=== PATIENT | male | born 1970 | race African-American/Black ===

== ENCOUNTER 2018-12-20 11:26 | Emergency (ER) | payer OTHER ==
[~2018-12-20] VITALS: Wt 95.0 kg
[2018-12-20] MEDS ORDERED: ASPIRIN 81 MG TAB PO STA (12:32)
[2018-12-20] MEDS ORDERED: NITROGLYCERIN 2% 1 GM OINT PKT TD STA (12:32)
[2018-12-20 12:44] VITALS: BP 156/113; PULSE 74; RESP 18
--- NOTE | 2018-12-20 12:57 | ERD ---
ER Documentation Chief Complaint Chief Complaint R SIDED CHEST PAIN X 5 DAYS "PRESSURE" ; HX CHOLESTEROL HPI Patient is a 48-year-old male with prediabetes and high cholesterol presents wit h chest pain. He said that he has had a chest pressure for the past 5 days which is constant in the midsternal area. He has had no treatment as of yet. He saw his doctor today who sent him to the emergency department for further evaluation. He says that he goes to a local clinic for his care. ROS All systems reviewed and are negative except as per history of present illness. Allergies Allergies: Coded Allergies: No Known Allergy (Unverified , 12/20/18) PMhx/Soc Medical and Surgical Hx: pt denies Surgical Hx Hx Cardiac Disorders: Yes (cholesterol) Hx Alcohol Use: No Hx Substance Use: No Hx Tobacco Use: No Smoking Status: Never smoker FmHx Family History: No coronary disease Physical Exam Vitals Vital Signs Date Temp Pulse Resp B/P (MAP) Pulse Ox O2 O2 Flow FiO2 Time Delivery Rate 12/20/18 74 18 156/113 100 Room Air 12:44 (127) 12/20/18 97.9 68 19 162/100 100 12:13 (120) Physical Exam Const: No acute distress Head: Atraumatic Eyes: Normal Conjunctiva ENT: Normal External Ears, Nose and Mouth. Neck: Full range of motion. No meningismus. Resp: Clear to auscultation bilaterally Cardio: Regular rate and rhythm, no murmurs Abd: Soft, non tender, non distended. Normal bowel sounds Skin: No petechiae or rashes Back: No midline or flank tenderness Ext: No cyanosis, or edema Neur: Awake and alert Psych: Normal Mood and Affect Results 24 hrs Current Medications Medications Dose Sig/Kole Start Time Status Last (Trade) Ordered Route PRN Stop Time Admin Dose Reason Admin Aspirin 162 mg ONCE STAT 12/20/18 DC (Aspirin) PO 12:32 12/20/18 12:33 1 inch ONCE STAT 12/20/18 DC Nitroglycerin TD 12:32 12/20/18 12:33 (Nitroglyceri n 2% Oint) 1 tab Q5M UP TO 3 12/20/18 Nitroglycerin DOSES PRN 13:00 SL .CHEST (Nitroglyceri PAIN n (Sl Tab) 0.4 Mg) Procedures/MDM EKG read by me: Rate/Rhythm: Regular rate and rhythm at a rate of 70 Intervals: Normal Impression: No evidence of ischemia or arrhythmia Patient is a 48-year-old male with prediabetes and high cholesterol presents with chest pain. I am concerned for acute coronary syndrome given his description and symptoms. I wanted to do a full workup for acute coronary syndrome and admitted to the hospital. However he says that he has to drive his family home and cannot stay. I told him that I would not recommend this and that he would have to sign out AGAINST MEDICAL ADVICE. He understands the risks of leaving including heart attack or . The patient will need to return once he is done for further workup and admission. He is refusing further testing at this time until he is able to drop off his family. Departure Diagnosis: Primary Impression: Chest pain Chest pain type: unspecified Qualified Codes: R07.9 - Chest pain, unspecified Condition: Fair Patient Instructions: Chest Pain, Uncertain Cause Referrals: Your doctor Additional Instructions: Call your primary care doctor TOMORROW for an appointment during the next 1-2 days.See the doctor sooner or return here if your condition worsens before your appointment time. ROBERTO BECK MD Dec 20, 2018 12:57
[2018-12-20] MEDS ORDERED: NITROGLYCERIN (SL) 0.4 MG TAB SL PRN (13:00)
== END 2018-12-20 13:04 | disposition left against medical advice (07) ==
LOC: E/R 11:26
DX: R07.9 Chest pain, unspecified (principal)
CPT/HCPCS: 93005; Z7502; Z7610

== ENCOUNTER 2018-12-26 03:09 | Emergency (ER) | payer OTHER ==
[~2018-12-26] VITALS: Ht 177.8 cm; Wt 92.8 kg
[2018-12-26 03:18] VITALS: Ht 177.8 cm; Wt 92.8 kg
[2018-12-26] MEDS ORDERED: ASPIRIN 81 MG TAB PO STA (05:00)
[2018-12-26] MEDS ORDERED: KETOROLAC 15 MG INJ IV STA (06:19)
[2018-12-26] MEDS ORDERED: SOD CHLORIDE 0.9% 1,000 ML IV STA (06:19)
--- NOTE | 2018-12-26 07:55 | ERD ---
ER Documentation Chief Complaint Chief Complaint PT reports CP x 2 weeks HPI This is a very pleasant 48-year-old gentleman who presents to the emergency with 2 weeks of chest pain he describes it is right-sided, occasionally tight and worse with rotational movement. He states it is worse during the day and improve when relaxing and laying down and sleeping at night. He denies exertional symptoms. He does report recent flight to [place] given recent passing of his mother. He states symptoms have started since then. He does describe a mild pleuritic component but no calf swelling or leg swelling or prior history of DVT. He denies any hemoptysis. No fevers or chills. ROS All systems reviewed and are negative except as per history of present illness. Medications Home Meds Active Scripts Lorazepam* (Lorazepam*) 1 Mg Tablet, 1 MG PO Q8H PRN for ANXIETY, #8 TAB Prov:YENNY POWELL MD 12/26/18 Ibuprofen* (Motrin*) 800 Mg Tab, 800 MG PO Q6H PRN for PAIN AND OR ELEVATED TEMP, #30 TAB Prov:YENNY POWELL MD 12/26/18 Allergies Allergies: Coded Allergies: No Known Allergy (Unverified , 12/20/18) PMhx/Soc Medical and Surgical Hx: pt denies Medical Hx, pt denies Surgical Hx History of Surgery: No Anesthesia Reaction: No Hx Neurological Disorder: No Hx Respiratory Disorders: No Hx Cardiac Disorders: No Hx Psychiatric Problems: No Hx Miscellaneous Medical Probl: No Hx Alcohol Use: No Hx Substance Use: No Hx Tobacco Use: No Smoking Status: Never smoker FmHx Family History: No diabetes, No coronary disease Physical Exam Vitals Vital Signs Date Temp Pulse Resp B/P (MAP) Pulse Ox O2 O2 Flow FiO2 Time Delivery Rate 12/26/18 71 19 155/97 98 Room Air 05:00 (116) 12/26/18 98.6 80 16 170/97 100 03:18 (121) Physical Exam General: Well developed, well nourished, no acute distress Head: Normocephalic, atraumatic. Eyes: Pupils equally reactive, EOM intact ENT: Moist mucous membranes Neck: Supple, no lymphadenopathy Respiratory: Lungs clear bilaterally, no distress, reproducible right-sided anterior chest wall tenderness Cardiovascular: RRR, no murmurs, rubs, or gallops Abdominal: Soft, non-tender, non-distended, no peritoneal signs : Deferred MSK: No edema, no unilateral swelling, 5/5 strength Neurologic: Alert and oriented, moving all extremities, normal speech, no focal weakness, no cerebellar signs Skin: No rash Psych: Normal mood Result Diagram: 12/26/18 0501 12/26/18 0501 Results 24 hrs Laboratory Tests Test 12/26/18 05:01 12/26/18 08:07 White Blood Count 5.4 10^3/ul Red Blood Count 4.79 10^6/ul Hemoglobin 14.5 g/dl Hematocrit 43.2 % Mean Corpuscular Volume 90.2 fl Mean Corpuscular Hemoglobin 30.3 pg Mean Corpuscular Hemoglobin Concent 33.6 g/dl Red Cell Distribution Width 13.0 % Platelet Count 240 10^3/UL Mean Platelet Volume 10.0 fl Immature Granulocytes % 0.600 % Neutrophils % 53.6 % Lymphocytes % 37.6 % Monocytes % 6.7 % Eosinophils % 1.1 % Basophils % 0.4 % Nucleated Red Blood Cells % 0.0 /100WBC Immature Granulocytes # 0.030 10^3/ul Neutrophils # 2.9 10^3/ul Lymphocytes # 2.0 10^3/ul Monocytes # 0.4 10^3/ul Eosinophils # 0.1 10^3/ul Basophils # 0.0 10^3/ul Nucleated Red Blood Cells # 0.0 10^3/ul Prothrombin Time 12.0 Sec Prothrombin Time Ratio 0.9 INR International Normalized Ratio 0.88 Activated Partial Thromboplast Time 28.3 Sec D-Dimer 306.73 ng/ml D-Dimer Comment Sodium Level 141 mmol/L Potassium Level 5.1 mmol/L Chloride Level 104 mmol/L Carbon Dioxide Level 27 mmol/L Anion Gap 10 Blood Urea Nitrogen 9 mg/dl Creatinine 0.79 mg/dl Est Glomerular Filtrat Rate mL/min > 60 mL/min Glucose Level 92 mg/dl Calcium Level 9.6 mg/dl Troponin I 0.018 ng/ml < 0.012 ng/ml Current Medications Medications Dose Sig/Kole Start Time Status Last (Trade) Ordered Route PRN Stop Time Admin Dose Reason Admin Aspirin 162 mg ONCE STAT 12/26/18 DC 12/26/18 (Aspirin) PO 05:00 12/26/18 05:07 05:01 Sodium 1,000 ml @ Q1H STAT 12/26/18 DC 12/26/18 Chloride 1,000 mls/hr IV 06:19 12/26/18 07:29 07:18 Ketorolac 15 mg ONCE STAT 12/26/18 DC 12/26/18 Tromethamine IV 06:19 12/26/18 07:29 (Toradol) 06:21 Procedures/MDM EKG, MONITORS, & DIAGNOSTIC IMAGING: EKG: I reviewed and interpreted a 12-lead EKG. Rhythm: Normal sinus rhythm ST Changes: No contiguous ST segment elevations T waves: No contiguous T wave inversions Impression: No evidence of acute cardiac ischemia Repeat EKG: EKG: I reviewed and interpreted a 12-lead EKG. Rhythm: Normal sinus rhythm ST Changes: No contiguous ST segment elevations T waves: No contiguous T wave inversions Impression: No evidence of acute cardiac ischemia Chest x-ray: I reviewed and interpreted a 1 view of the chest Mediastinum: No enlargement Cardiac silhouette: No cardiomegaly Airspace: Clear lung pena bilaterally without evidence of pneumothorax Bones: No evidence of fracture PROCEDURES: None LAB INTERPRETATION: Initial troponin negative. D-dimer negative. Second troponin negative MEDICAL DECISION MAKING: The patient's history, physical exam and clinical presentation is most likely consistent with muscular skeletal etiology versus stress and grief reaction. The patient does not have any significant risk factors for early cardiac disea se. He has no exertional symptoms he has reproducible symptoms. These are highly associated with stressful situation and improved with resting at night and relaxing. The patient's only risk factor for pulmonary embolism is recent flight. A d-dimer will be appropriate. No indication for CTPA at this time. Based on the patient's clinical exam and history and risk factors, I have a much lower clinical concern for pulmonary embolism, acute aortic dissection, pneumothorax, pneumonia, cardiac tamponade HEART Score: 1 MACE Rate: 0.9-1.7% Shared Decision Making: We had a conversation regarding risk stratification, MACE rate, and the risks, benefits, alternatives of disposition planning optio ns. Disposition planning: Serial troponin in the emergency room setting and outpatient follow-up ER COURSE: * Patient given pain control medication in the form of nonsteroidal anti- inflammatory. Symptoms improving. Initial troponin negative. * The patient will benefit from a repeat troponin. If negative the patient can be safely discharged with primary care follow-up. He is 2 weeks of constant symptoms that are stress related and reproducible. * Serial enzymes are negative. The patient is asking for anxiety medication to go home. A short course would be reasonable. Return precautions were discussed and understood. * Patient's blood pressure was elevated (>120/80) but appears stable without evidence of hypertensive emergency or urgency. The patient was counseled about the risks of hypertension and urged to pursue outpatient monitoring and therapy within a week with their primary care physician. More likely associated with stress and grief rather than underlying essential hyperten siva. CONSULTATION: None DISPOSITION PLAN: The patient does not have an identifiable emergent medical condition that warrants inpatient hospitalization at this time. The patient is deemed safe for discharge with outpatient follow-up. We discussed follow up with the patient's primary care doctor within 24 to 48 hours as needed. We also discussed return to the emergency room for worsening symptoms or worsening condition. Outpatient referral: None required Discharge Medications: Ativan, Motrin Departure Diagnosis: Primary Impression: Grief reaction Additional Impressions: Chest wall pain Chest pain Chest pain type: unspecified Qualified Codes: R07.9 - Chest pain, unspecified Condition: Stable YENNY POWELL MD Dec 26, 2018 07:55
[2018-12-26] MEDS ORDERED: IBUP800T48 PO (08:59)
[2018-12-26] MEDS ORDERED: LORA1TAB PO (08:59)
[2018-12-26 09:18] VITALS: BP 151/97; PULSE 81; RESP 17
== END 2018-12-26 09:19 | disposition home or self-care (01) ==
LOC: E/R 03:09
DX: F43.20 Adjustment disorder, unspecified (principal); R07.89 Other chest pain
CPT/HCPCS: 36415; 71045; 80048; 84484; 85025; 85378; 85610; 85730; 93005; 96374; J1885; J7030; Z7502; Z7610